=== PATIENT | male | born 1960 | race Caucasian/White ===

== ENCOUNTER 2019-11-29 21:00 | Emergency (ER) | payer MEDICAID ==
[~2019-11-29] VITALS: Ht 167.6 cm; Wt 75.5 kg
[2019-11-29 21:04] VITALS: BP 171/91
== END 2019-11-29 21:52 | disposition home or self-care (01) ==
LOC: ED 21:15
DX: K40.90 Unilateral inguinal hernia, without obstruction or gangrene, not specified as recurrent (principal); R21 Rash and other nonspecific skin eruption; E78.5 Hyperlipidemia, unspecified; I25.10 Atherosclerotic heart disease of native coronary artery without angina pectoris; I10 Essential (primary) hypertension; F17.210 Nicotine dependence, cigarettes, uncomplicated; Z76.0 Encounter for issue of repeat prescription; Z90.5 Acquired absence of kidney; Z85.53 Personal history of malignant neoplasm of renal pelvis
CPT/HCPCS: 99282; 99406